=== PATIENT | female | born 1955 | race African-American/Black ===

== ENCOUNTER 2017-01-07 11:32 | Emergency (ER) | payer BC ==
[~2017-01-07 11:32] MED LIST: ZESTORETIC PO
== END 2017-01-07 12:40 | disposition home or self-care (01) ==
LOC: ER 11:32
DX: J20.9 Acute bronchitis, unspecified (principal); F17.200 Nicotine dependence, unspecified, uncomplicated; I10 Essential (primary) hypertension; Z79.899 Other long term (current) drug therapy
CPT/HCPCS: 71020; 87070; 87880; 96372; 99284